=== PATIENT | female | born 1980 | race Caucasian/White ===

== ENCOUNTER 2018-07-16 07:31 | Emergency (ER) | payer MEDICAID, OTHER ==
[~2018-07-16] VITALS: Ht 154.9 cm; Wt 54.5 kg
[2018-07-16] MEDS ORDERED: ondansetron 4mg rapidly disintigrating tab PO ONE (08:00)
[2018-07-16] MEDS ORDERED: acetaminophen 325mg tablet PO ONE (08:05)
[2018-07-16] MEDS ORDERED: ibuprofen tablet 400 MG TABLET PO ONE (09:05)
[2018-07-16 09:13] VITALS: BP 112/76
== END 2018-07-16 09:15 | disposition home or self-care (01) ==
LOC: ER 07:34
DX: S06.0X9A Concussion with loss of consciousness of unspecified duration, initial encounter (principal); S60.211A Contusion of right wrist, initial encounter; R04.0 Epistaxis; Z88.2 Allergy status to sulfonamides; W01.0XXA Fall on same level from slipping, tripping and stumbling without subsequent striking against object, initial encounter; Y93.89 Activity, other specified; Y92.89 Other specified places as the place of occurrence of the external cause; Y99.8 Other external cause status
CPT/HCPCS: 29125; 70450; 73130; 93005; 99284